=== PATIENT | female | born 1980 | race Caucasian/White ===

== ENCOUNTER 2017-08-22 14:01 | Emergency (ER) | payer OTHER ==
[2017-08-22 14:13] VITALS: BP 118/77
--- NOTE | 2017-08-22 14:43 | XRAY Report ---
EXAM: CHEST RADIOGRAPHY EXAM DATE: 08/22/2017 02:31 PM. CLINICAL HISTORY: Chest pain. COMPARISON: None. TECHNIQUE: 2 views. FINDINGS: Lungs/Pleura: No focal opacities evident. No pleural effusion. No pneumothorax. Normal volumes. Mediastinum: Heart and mediastinal contours are unremarkable. Other: None. IMPRESSION: Negative chest. [facility] Referring Provider Line: [phone] SITE ID: [id number]
[2017-08-22] MEDS ORDERED: PHENobarb/HYOSCY/ATROPINE/SCOP 5 ML UDC PO STA (14:47)
[2017-08-22] MEDS ORDERED: MAG HYDROX/AL HYDROX/SIMETH 30 ML UDC PO STA (14:47)
[2017-08-22] MEDS ORDERED: LIDOCAINE VISCOUS 2% 15 ML UDC MM STA (14:47)
--- NOTE | 2017-08-22 14:48 | ED Physician Documentation ---
PD HPI CHEST PAIN - Stated complaint Stated Complaint: CHEST TIGHTNESS/ARM PX/JAW PX - Chief complaint Chief Complaint: Cardiac - History obtained from History obtained from: Patient - History of Present Illness Timing - onset: Today Timing - onset during: Rest Timing - duration: Hours (1) Quality: Tightness Location: Substernal Similar symptoms before: No diagnosis (Similar symptoms intermittently for the past week.) - Additional information Additional information: The patient is a 37-year-old female who presents with substernal chest tightness that occurred this morning and lasted for about one hour before resolving spontaneously. She denies associated shortness of breath, nausea, vomiting, cough, or fever. She denies any exacerbating or alleviating factors. She has had similar symptoms intermittently for the past week. She does report an associated "acid taste" in her mouth. She also reports intermittent bloating recently. She denies dysuria. Her last menstrual period was one week ago. Cardiac risk factors are negative for diabetes, hypertension, hyperlipidemia, family history of early VT, or cigarette smoking. Review of Systems Constitutional: denies: Fever, Fatigue Nose: denies: Congestion Throat: denies: Sore throat Cardiac: reports: Chest pain / pressure. denies: Palpitations Respiratory: denies: Dyspnea, Cough GI: denies: Abdominal Pain, Nausea, Vomiting : reports: LMP (1 week ago.). denies: Dysuria Skin: denies: Rash Musculoskeletal: denies: Back pain Neurologic: denies: Headache PD PAST MEDICAL HISTORY - Past Medical History Past Medical History: No Cardiovascular: None Respiratory: None Neuro: None Endocrine/Autoimmune: None - Past Surgical History Past Surgical History: No - Present Medications Home Medications: Ambulatory Orders Medication Instructions Recorded Confirmed raNITIdine [Zantac] 150 mg PO BID #30 tablet 08/22/17 - Allergies Allergies/Adverse Reactions: Allergies Allergy/AdvReac Type Severity Reaction Status Date / Time Sulfa (Sulfonamide Allergy Rash Verified 08/22/17 14:13 Antibiotics) - Social History Does the pt smoke?: No Smoking Status: Never smoker PD ED PE NORMAL - Vitals Vital signs reviewed: Yes (normal) - General General: Alert and oriented X 3, Well developed/nourished - HEENT HEENT: Atraumatic, Moist mucous membranes, Pharynx benign - Neck Neck: Supple, no meningeal sign, No adenopathy, No JVD - Cardiac Cardiac: RRR, No murmur - Respiratory Respiratory: No respiratory distress, Clear bilaterally, Other (No chest wall tenderness.) - Abdomen Abdomen: Normal bowel sounds, Soft, Non tender, No organomegaly - Back Back: No CVA TTP - Derm Derm: No rash - Extremities Extremities: No edema, No calf tenderness / cord - Neuro Neuro: Alert and oriented X 3, No motor deficit, Normal speech Results - Vitals Vitals: Oxygen O2 Source Room air - EKG (time done) 14:09 Rate: Rate (enter#) (76) Rhythm: NSR [place]: Normal Intervals: Normal MO QRS: Normal Ischemia: Normal ST segments Computer interpretation: Agree with computer - Rads (name of study) CXR Radiology: Prelim report reviewed, EMP read contemporaneously, See rad report ( Negative chest.) PD MEDICAL DECISION MAKING - ED course Complexity details: reviewed results, re-evaluated patient, considered differential, d/w patient ED course: The patient's presentation is most consistent with gastroesophageal reflux disease. I doubt cardiac ischemia, or pulmonary etiology for the patient's symptoms. EKG and chest x-ray are completely normal. Treatment in the emergency department included administration of GI cocktail. The patient was asymptomatic while in the emergency department so there was no appreciable result from the medication. She is being discharged with a prescription for ranitidine. I discussed with her the likely diagnosis, symptomatic treatment and outpatient follow-up, as well as potentially worrisome signs or symptoms that should prompt reevaluation in the emergency department. Departure - Departure Disposition: 01 Home, Self Care Clinical Impression: GERD (gastroesophageal reflux disease) Qualifiers: Esophagitis presence: esophagitis presence not specified Qualified Code(s): K21.9 - Gastro-esophageal reflux disease without esophagitis Condition: Stable Instructions: ED GERD Follow-Up: Mari Boyle MD [Primary Care Provider] - Prescriptions: raNITIdine [Zantac] 150 mg PO BID #30 tablet Comments: Minimize coffee, antonio, alcohol, and chocolate. Take ranitidine twice daily as prescribed. You can use liquid antacid, such as Maalox or Mylanta if you develop recurrent symptoms. Follow up with your primary physician within 2 weeks. Call to schedule an appointment. Return to the emergency department if you develop increasing chest tightness, shortness of breath, or otherwise worsening symptoms. Discharge Date/Time: 08/22/17 15:36
== END 2017-08-22 15:36 | disposition home or self-care (01) ==
LOC: ED 14:01
DX: K21.9 Gastro-esophageal reflux disease without esophagitis (principal)
CPT/HCPCS: 71046; 93005; 99283; A9270; 80053; 83690; 84484; 85025

== ENCOUNTER 2018-06-26 08:00 | Outpatient (CLI) | payer OTHER | END 2018-06-26 23:59 | disposition home or self-care (01) | LOC: LAB.WCP 08:00 | PROVIDERS: ATTEND Physician Assistant | DX: R69 Illness, unspecified (principal) | CPT/HCPCS: 87275; 87276 ==